=== PATIENT | female | born 1965 | race American Indian/Alaskan Native ===

== ENCOUNTER 2017-01-12 15:05 | Inpatient (IN) | payer MEDICAID, OTHER ==
[2017-01-12] MEDS ORDERED: Sodium Chloride 0.9% 10 ML Syringe FLUSH PRN ×2 (16:07→18:44)
--- NOTE | 2017-01-12 16:16 | EDM.PDOC ---
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 Sodium Chloride 0.9% [Saline Flush] 10 ml FLUSH ASDIRECTED PRN Peripheral IV Insertion Adult [OM.PC] Stat 01/12/17 16:08 Scapula Lt [CR] Stat Scapula Rt [CR] Stat 01/12/17 18:23 Chest 2V [CR] Stat 01/12/17 18:44 Sodium Chloride 0.9% [Saline Flush] 10 ml FLUSH ONETIME PRN 01/12/17 20:00 Magnesium Sulfate/Water [Magnesium Sulfate 2 GM in Water 50 ML] 2 gm Premix Bag 1 bag IV ONETIME 01/12/17 20:03 Admission Status [Patient Status] [ADT] Routine Cardiac Monitoring [RC] . DIRECTED 01/13/17 19:00 Remove Patch 1 ea TRDERM ONETIME 01/14/17 09:00 Remove Patch 1 ea TRDERM DAILY - Assessment/Plan Last 24 Hours: My Active Orders 01/12/17 16:07 Peripheral IV Care [RC] . DIRECTED Sodium Chloride 0.9% [Saline Flush] 10 ml FLUSH ASDIRECTED PRN Peripheral IV Insertion Adult [OM.PC] Stat 01/12/17 16:08 Scapula Lt [CR] Stat Scapula Rt [CR] Stat 01/12/17 18:23 Chest 2V [CR] Stat 01/12/17 18:44 Sodium Chloride 0.9% [Saline Flush] 10 ml FLUSH ONETIME PRN 01/12/17 20:00 Magnesium Sulfate/Water [Magnesium Sulfate 2 GM in Water 50 ML] 2 gm Premix Bag 1 bag IV ONETIME 01/12/17 20:03 Admission Status [Patient Status] [ADT] Routine Cardiac Monitoring [RC] . DIRECTED 01/13/17 19:00 Remove Patch 1 ea TRDERM ONETIME 01/14/17 09:00 Remove Patch 1 ea TRDERM DAILY
--- NOTE | 2017-01-12 17:03 | CT ---
Head CT Technique: Multiple axial sections through the brain were obtained. Intravenous contrast was not utilized. Comparison: No previous intracranial imaging. Findings: Ventricles along with basal cisterns and sulci over convexities are within normal limits for the patient's age. No abnormal parenchymal densities are seen. No evidence of intracranial hemorrhage. No midline shift or mass effect is seen. No discrete calvarial abnormality is seen. Visualized sinuses are clear. Impression: 1. No acute intracranial abnormality is identified on noncontrast head CT study. Diagnostic code #1
--- NOTE | 2017-01-12 17:07 | CT ---
CT cervical spine Technique: Multiple axial sections through the cervical spine were obtained from above C1 inferiorly to the bottom of T1. Reconstructed sagittal and coronal images were reviewed. Findings: Posterior skull base is intact. Vertebral body heights are maintained. Mild disc space narrowing noted at C5-6. Vertebral bodies and posterior arches are intact. No fracture is seen. Mild kyphosis is present on the reconstructed sagittal views. No abnormal subluxation is seen. No bony central or bony neural foraminal stenosis is seen. Impression: 1. Mild kyphosis either due to muscle spasm or is positional. 2. No acute fracture or abnormal subluxation is seen. Diagnostic code #2
[2017-01-12] MEDS ORDERED: Albuterol/Ipratropium 3.0-0.5 MG/3 ML Neb Soln NEB PRN (18:38)
[2017-01-12] MEDS ORDERED: Temazepam 15 MG Cap PO PRN (18:38)
[2017-01-12] MEDS ORDERED: HYDROmorphone 1 MG/ML Syringe IVPUSH PRN (18:38)
[2017-01-12] MEDS ORDERED: Bisacodyl 5 MG Tab PO PRN (18:38)
[2017-01-12] MEDS ORDERED: Promethazine 12.5 MG in Sodium Chloride 0.9% 50 ML IV PRN (18:38)
[2017-01-12] MEDS ORDERED: Polyethylene Glycol 3350 Powder 17 GM Packet PO PRN (18:38)
[2017-01-12] MEDS ORDERED: Ondansetron 4 MG/2 ML SDV IV PRN (18:38)
[2017-01-12] MEDS ORDERED: Potassium Chloride 20 MEQ Tab.ER PO ONE (18:42)
[2017-01-12] MEDS ORDERED: LORazepam 2 MG/ML MDV IVPUSH PRN ×2 (18:44→18:48)
[2017-01-12] MEDS ORDERED: hydrALAZINE 20 MG/ML SDV IVPUSH PRN (18:44)
[2017-01-12] MEDS ORDERED: Metoprolol Tartrate 5 MG/5 ML SDV IVPUSH PRN (18:44)
[2017-01-12] MEDS ORDERED: Iopamidol 612 MG/ML 150 ML Bottle IVPUSH ONE (18:44)
[2017-01-12] MEDS ORDERED: Folic Acid 50 MG/10 ML MDV SUBCUT ONE (18:45)
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
[2017-01-12] MEDS ORDERED: cloNIDine 0.3 MG/Day Transdermal Patch TRDERM ONE (19:00)
--- NOTE | 2017-01-12 19:27 | CT ---
CT abdomen and pelvis Technique: Multiple axial sections were obtained from above the dome of the diaphragm inferiorly through the pubic symphysis. Intravenous contrast was utilized. No oral contrast has been given. Delayed images were also obtained through the bladder. Findings: Visualized lung bases shows nothing acute. Mild fatty infiltration is seen within the liver. Surgical clips are seen from prior cholecystectomy. Spleen appears within normal limits. Slight splenic varicosities are noted. Right kidney is lobulated with irregular areas of parenchymal loss which appears to be chronic. Left kidney appears more normal in appearance. Both kidneys show symmetric contrast enhancement. Adrenal glands show no nodule. Pancreas is within normal limits. Aorta shows no aneurysmal dilatation. No retroperitoneal adenopathy or mesenteric abnormalities are seen. No pelvic mass or adenopathy is seen. No free fluid or inflammatory change is seen within the abdomen or pelvis. Slight increased stool noted within the colon. Delayed images shows slight contrast within the bladder and within the distal ureters. Bone window settings were reviewed which appear within normal limits for the patient's age. Impression: 1. Incidental findings as noted above. Nothing acute is appreciated on CT study of the abdomen and pelvis. Diagnostic code #2
--- NOTE | 2017-01-12 19:57 | PCM.SN ---
- Free Text/Narrative Note: Patient had 6 episode of mild seizures since she got to the unit. We have just started her on IV Keppra. If she continues, may switch her to dilantin or cerebyx. Her vitals remain are stable.
[2017-01-12] MEDS ORDERED: Magnesium Sulfate/Water 2 GM in Premix Bag 1 BAG IV ONE (20:00)
[2017-01-12] MEDS ORDERED: Folic Acid 1 MG Tab PO ONE (20:37)
[2017-01-12] MEDS: chlordiazePOXIDE 25 MG Cap PO SCH (20:45)
[2017-01-12] MEDS: QUEtiapine 25 MG Tab PO SCH (20:46)
[2017-01-12] MEDS: Pantoprazole 40 MG Vial IV SCH (20:46)
[2017-01-12] MEDS: Sodium Chloride 0.9% 1,000 ML IV SCH (20:49)
[2017-01-12] MEDS ORDERED: Multivitamins,Therapeutic Tab PO ONE (21:00)
[2017-01-12] MEDS: Acetaminophen/HYDROcodone 325-5 MG Tab PO PRN (21:07)
--- NOTE | 2017-01-13 00:37 | PCM.SN ---
- Free Text/Narrative Note: She has Thrombocytopenia likely 2/2 Chronic ETOHLism. Lovenox and Heparin would be contra-indicated due to increased bleed. SCDs for DVT prophylaxis.
[2017-01-13] MEDS: Sodium Chloride 0.9% 1,000 ML IV SCH (04:53)
--- NOTE | 2017-01-13 07:05 | CR ---
Chest: Two views of the chest were obtained. Comparison: No previous chest x-ray. Heart size and mediastinum are normal. Lungs are clear. Bony structures are within normal limits for the patient's age. Surgical clips are seen within the upper right abdomen. Impression: 1. Nothing acute is identified on two-view chest x-ray. Diagnostic code #2
--- NOTE | 2017-01-13 07:05 | CR ---
Left scapula: Two views of the left scapula were obtained. Comparison: No previous study. No fracture or other bony abnormality is seen. Impression: 1. No abnormality is identified on two-view left scapula study. Diagnostic code #1
--- NOTE | 2017-01-13 07:05 | CR ---
Right scapula: Two views of the right scapula were obtained. No fracture or other bony abnormality is seen. Impression: 1. No abnormality is identified on two-view right scapula study. Diagnostic code #1
[2017-01-13] MEDS: Pantoprazole 40 MG Vial IV SCH (08:06)
[2017-01-13] MEDS: Thiamine 100 MG Tab PO SCH (08:06)
[2017-01-13] MEDS: Folic Acid 1 MG Tab PO SCH (08:06)
[2017-01-13] MEDS: chlordiazePOXIDE 25 MG Cap PO SCH ×4 (08:06→21:06)
[2017-01-13] MEDS: QUEtiapine 25 MG Tab PO SCH ×2 (08:06→21:07)
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
[2017-01-13] MEDS ORDERED: Nicotine 21 MG/24 Hr Patch TRDERM SCH (09:00)
[2017-01-13] MEDS ORDERED: Enoxaparin 30 MG/0.3 ML Syringe SUBCUT SCH (09:00)
[2017-01-13] MEDS: Acetaminophen/HYDROcodone 325-5 MG Tab PO PRN (21:06)
[2017-01-13] MEDS: Famotidine 20 MG Tab PO SCH (21:06)
--- NOTE | 2017-01-13 21:59 | CONS ---
CONSULTING PHYSICIAN: Jh Huizar LAC DATE OF CONSULTATION: 01/13/2017 TIME: 09:07 p.m. BRANT Chaidez contacted me today, 01/13/2017, with a request for an alcohol and drug consultation. I attempted an alcohol and drug evaluation at approximately 04:30 p.m. on 01/13/2017. However, the patient was quite tired and could not remember events in her life. Her speech at times was barely audible and when asked to repeat herself, she became emily and irritated. The patient verbalized that she was tired and we decided to postpone the evaluation until 01/14/2017. I spoke with Dr. Mobley and BRANT Chaidez regarding the failed attempt at the alcohol and drug evaluation. The team was in agreement that I meet with the patient again on 01/14/2017, to continue with completing the alcohol and drug evaluation. ARASH /[id number]
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
[2017-01-14] MEDS: Potassium Chloride 20 MEQ Tab.ER PO SCH ×2 (09:03→12:15)
[2017-01-14] MEDS: Thiamine 100 MG Tab PO SCH (09:03)
[2017-01-14] MEDS: Famotidine 20 MG Tab PO SCH ×2 (09:03→21:33)
[2017-01-14] MEDS: QUEtiapine 25 MG Tab PO SCH ×2 (09:03→21:34)
[2017-01-14] MEDS: Folic Acid 1 MG Tab PO SCH (09:03)
[2017-01-14] MEDS: chlordiazePOXIDE 25 MG Cap PO SCH ×3 (09:03→17:33)
[2017-01-14] MEDS: Acetaminophen 325 MG Tab PO PRN (09:40)
[2017-01-14] MEDS: Acetaminophen/HYDROcodone 325-5 MG Tab PO PRN (14:41)
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
[2017-01-14] MEDS ORDERED: Loratadine 10 MG Tab PO PRN (19:49)
[2017-01-14] MEDS: diphenhydrAMINE 50 MG/ML SDV IVPUSH PRN (21:34)
[2017-01-15] MEDS: QUEtiapine 25 MG Tab PO SCH ×2 (08:58→21:08)
[2017-01-15] MEDS: Magnesium Oxide 400 MG Tab PO SCH (08:58)
[2017-01-15] MEDS: Potassium Chloride 20 MEQ Tab.ER PO SCH ×2 (08:58→11:39)
[2017-01-15] MEDS: Folic Acid 1 MG Tab PO SCH (08:58)
[2017-01-15] MEDS: Thiamine 100 MG Tab PO SCH (08:58)
[2017-01-15] MEDS: Famotidine 20 MG Tab PO SCH ×2 (08:59→21:08)
[2017-01-15] MEDS: Acetaminophen 325 MG Tab PO PRN (09:04)
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
[2017-01-15] MEDS ORDERED: Magnesium Sulfate/Water 2 GM in Premix Bag 1 BAG IV ONE (18:26)
[2017-01-15] MEDS ORDERED: Potassium Chloride 10% 20 MEQ/15 ML Soln 30 ML UD Cup PO SCH (21:00)
[2017-01-15] MEDS: diphenhydrAMINE 50 MG/ML SDV IVPUSH PRN ×2 (21:19→21:23)
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
[2017-01-16] MEDS: Famotidine 20 MG Tab PO SCH (08:18)
[2017-01-16] MEDS: Magnesium Oxide 400 MG Tab PO SCH (08:19)
[2017-01-16] MEDS: QUEtiapine 25 MG Tab PO SCH (08:19)
[2017-01-16] MEDS: Acetaminophen 325 MG Tab PO PRN (08:19)
[2017-01-16] MEDS: Thiamine 100 MG Tab PO SCH (08:19)
[2017-01-16 08:54] VITALS: BP 102/55
== END 2017-01-16 09:16 | DRG 896 ==
LOC: JD.ED 15:05 → JD.ICU 20:03 → UNDOADMIN 20:03 → JD.ICU 01-14 07:00 → JD.MS 01-14 15:39 → JD.ICU 01-14 15:45 → JD.MS 01-14 17:56 → JD.ICU 01-14 17:56
PROVIDERS: ADMIT Internal Medicine; ATTEND Internal Medicine
DX: F10.229 Alcohol dependence with intoxication, unspecified (principal); K85.20 Alcohol induced acute pancreatitis without necrosis or infection; F10.239 Alcohol dependence with withdrawal, unspecified; Y90.1 Blood alcohol level of 20-39 mg/100 ml; K70.30 Alcoholic cirrhosis of liver without ascites; F13.90 Sedative, hypnotic, or anxiolytic use, unspecified, uncomplicated; E87.6 Hypokalemia; R79.89 Other specified abnormal findings of blood chemistry; T14.8 Other injury of unspecified body region; Y04.0XXA Assault by unarmed brawl or fight, initial encounter; Z86.19 Personal history of other infectious and parasitic diseases; Z88.8 Allergy status to other drugs, medicaments and biological substances; F17.200 Nicotine dependence, unspecified, uncomplicated; D69.6 Thrombocytopenia, unspecified
CPT/HCPCS: 36415; 70450; 70450-26; 71020; 71020-26; 72125; 72125-26; 73010-26-LT; 73010-26-RT; 73010-LT; 73010-RT; 74177; 74177-26; 80048; 80053; 80306; 81001; 83690; 83735; 84443; 84703; 85025; 85610; 86140; 93005; 97110-GP; 97116-GP; 97162-GP; 97165-GO; 99285; 99285-25; A9270-GY; C9113; G0480; J1200; J2060; J3411; J3475; J7030; J7040; J7050; Q9967

== ENCOUNTER 2019-08-12 12:01 | Emergency (ER) | payer SELFPAY ==
[2019-08-12 12:17] VITALS: BP 113/51; PULSE 99
[2019-08-12] MEDS ORDERED: Sodium Chloride 0.9% 10 ML Syringe FLUSH PRN (12:17)
[2019-08-12] MEDS ORDERED: HYDROmorphone 1 MG/ML Syringe IVPUSH ONE ×2 (12:18→14:45)
--- NOTE | 2019-08-12 12:36 | EDM.PDOC ---
ED HPI GENERAL MEDICAL PROBLEM - General Chief Complaint: Respiratory Problem Stated Complaint: SOB Time Seen by Provider: 08/12/19 12:10 Source of Information: Reports: Patient, Family History Limitations: Reports: No Limitations - History of Present Illness INITIAL COMMENTS - FREE TEXT/NARRATIVE: The patient presents with her family for shortness of breath and left sided chest pain. She has end stage liver disease and is going into hospice soon. She fell earlier this month and broke 3 ribs on the left side and she was hospitalized in [place]. She was seen here about 1 week ago. She had a CT angio done and there was a possible pneumonia with effusion and the fractured ribs. She was put on an antibiotic. She now has more left rib pain and her family thinks her ascities is worse and she may need to be tapped. She has no fever but she does have chills. She has no nausea or vomiting. She has no diarrhea or dysuria. Onset: Gradual Duration: Day(s): Location: Reports: Chest, Abdomen Quality: Reports: Sharp Severity: Moderate Improves with: Reports: None Worsens with: Reports: None Associated Symptoms: Reports: Chest Pain, Fever/Chills, Shortness of Breath. Denies: Cough, Headaches, Nausea/Vomiting Left Abdomen Pain Score (Numeric/FACES): 10 - Related Data Allergies Allergy/AdvReac Type Severity Reaction Status Date / Time celecoxib [From Celebrex] Allergy Swelling Verified 08/12/19 12:19 codeine Allergy Swelling Verified 08/12/19 12:19 Home Meds: Home Meds Folic Acid 1 mg PO DAILY #30 tablet 01/16/17 [Rx] Thiamine [Vitamin B-1] 100 mg PO DAILY #30 tablet 01/16/17 [Rx] Albuterol [Ventolin HFA] 2 puff INH Q6HR PRN 07/28/19 [History] Cholecalciferol (Vitamin D3) [Vitamin D3] 1,000 unit PO DAILY 07/28/19 [History] Furosemide 20 mg PO DAILY 07/28/19 [History] Gabapentin [Neurontin] 300 mg PO BID 07/28/19 [History] Iron Ag,Ps/C/Fa6/B12/Zn/SA/Sto [Niferex Tablet] 1 each PO DAILY 07/28/19 [ History] Lactulose 45 ml PO QID 07/28/19 [History] Methocarbamol [Robaxin-750] 750 mg PO TID 07/28/19 [History] Midodrine 10 mg PO TID 07/28/19 [History] Mirtazapine 7.5 mg PO BEDTIME 07/28/19 [History] Morphine 7.5 mg PO Q6HR PRN 07/28/19 [History] Pantoprazole [ProTONIX] 40 mg PO DAILY 07/28/19 [History] Spironolactone [Aldactone] 25 mg PO DAILY 07/28/19 [History] Morphine 15 mg PO Q6H PRN #30 tab 08/12/19 [Rx] Past Medical History HEENT History: Reports: None Cardiovascular History: Reports: None Respiratory History: Reports: None Gastrointestinal History: Reports: Cirrhosis, Other (See Below) Other Gastrointestinal History: diverticulitis Genitourinary History: Reports: Chronic Renal Insuffiency 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: Musculoskeletal History: Reports: Fracture Neurological History: Reports: None Psychiatric History: Reports: None Endocrine/Metabolic History: Reports: None Hematologic History: Reports: None Immunologic History: Reports: None Oncologic (Cancer) History: Reports: None Dermatologic History: Reports: None - Infectious Disease History Infectious Disease History: Reports: None - Past Surgical History Musculoskeletal Surgical History: Reports: Other (See Below) Social & Family History - Family History Family Medical History: Noncontributory - Caffeine Use Caffeine Use: Reports: Coffee ED ROS GENERAL - Review of Systems Review Of Systems: See Below Constitutional: Reports: No Symptoms HEENT: Reports: No Symptoms Respiratory: Reports: Shortness of Breath. Denies: Cough Cardiovascular: Reports: Chest Pain Endocrine: Reports: No Symptoms GI/Abdominal: Reports: Abdominal Pain. Denies: Diarrhea, Nausea, Vomiting : Reports: No Symptoms ED EXAM, GENERAL - Physical Exam Exam: See Below Exam Limited By: No Limitations General Appearance: Alert, No Apparent Distress Ears: Normal External Exam Nose: Normal Inspection Head: Atraumatic, Normocephalic Neck: Normal Inspection Respiratory/Chest: No Respiratory Distress, Decreased Breath Sounds Cardiovascular: Regular Rate, Rhythm, No Edema, No Murmur, Other (Pain upon palpation to the left chest) GI/Abdominal: Soft, Non-Tender, No Organomegaly, No Mass. No: Distended Back Exam: Normal Inspection Extremities: Normal Inspection Neurological: Alert, Oriented, No Motor/Sensory Deficits EKG INTERPRETATION EKG Date: 08/12/19 Time: 12:22 Rhythm: NSR Rate (Beats/Min): 76 [place]: Normal P-Wave: Present QRS: Normal ST-T: Normal QT: Normal Course - Vital Signs Last Recorded V/S: Last Vital Signs Temp 97.3 F 08/12/19 12:10 Pulse 99 08/12/19 12:10 Resp 18 08/12/19 12:10 BP 113/51 L 08/12/19 12:10 Pulse Ox 99 08/12/19 12:10 - Orders/Labs/Meds Orders: Active Orders 24 hr Category Date Time Status Cardiac Monitoring [RC] . DIRECTED Care 08/12/19 12:17 Active EKG Documentation Completion [RC] STAT Care 08/12/19 12:18 Active Oxygen Therapy [RC] PRN Care 08/12/19 12:17 Active Peripheral IV Care [RC] . DIRECTED Care 08/12/19 12:18 Active Sodium Chloride 0.9% [Saline Flush] Med 08/12/19 12:17 Active 10 ml FLUSH ASDIRECTED PRN Peripheral IV Insertion Adult [OM.PC] Stat Oth 08/12/19 12:17 Ordered Medication Orders Sodium Chloride (Saline Flush) 10 ml FLUSH ASDIRECTED PRN PRN Reason: Keep Vein Open Last Admin: 08/12/19 12:40 Dose: 10 ml Labs: Laboratory Tests 08/12/19 08/12/19 08/12/19 Range/Units 12:32 12:32 12:32 WBC 5.02 (3.98-10.04) K/mm3 RBC 2.31 L (3.98-5.22) M/mm3 Hgb 8.1 L (11.2-15.7) gm/dl Hct 26.6 L (34.1-44.9) % MCV 115.2 H D (79.4-94.8) fl MCH 35.1 H (25.6-32.2) pg MCHC 30.5 L (32.2-35.5) g/dl RDW Std Deviation 96.9 H (36.4-46.3) fL Plt Count 81 L (182-369) K/mm3 MPV 10.6 (9.4-12.3) fl Neut % (Auto) 69.8 (34.0-71.1) % Lymph % (Auto) 12.0 L (19.3-51.7) % [place] % (Auto) 12.2 (4.7-12.5) % Eos % (Auto) 4.2 (0.7-5.8) Baso % (Auto) 0.6 (0.1-1.2) % Neut # (Auto) 3.51 (1.56-6.13) K/mm3 Lymph # (Auto) 0.60 L (1.18-3.74) K/mm3 [place] # (Auto) 0.61 H (0.24-0.36) K/mm3 Eos # (Auto) 0.21 (0.04-0.36) K/mm3 Baso # (Auto) 0.03 (0.01-0.08) K/mm3 Manual Slide Review Abnormal smear PT (9.7-12.0) SECONDS INR APTT (22-31) SECONDS Sodium 138 (136-145) mEq/L Potassium 4.4 (3.5-5.1) mEq/L Chloride 108 H (98-107) mEq/L Carbon Dioxide 18 L (21-32) mEq/L Anion Gap 16.4 H (5-15) BUN 15 (7-18) mg/dL Creatinine 1.3 H (0.55-1.02) mg/dL Est Cr Clr Drug Dosing 45.03 mL/min Estimated GFR (MDRD) 43 (>60) mL/min BUN/Creatinine Ratio 11.5 L (14-18) Glucose 106 (74-106) mg/dL Calcium 8.6 (8.5-10.1) mg/dL Magnesium 1.9 (1.8-2.4) mg/dl Total Bilirubin 12.4 H (0.2-1.0) mg/dL AST 48 H (15-37) U/L ALT 31 (14-59) U/L Alkaline Phosphatase 292 H (46-116) U/L Troponin I 0.026 (0.00-0.056) ng/mL NT-Pro-B Natriuret Pep 556 H (0-125) pg/mL Total Protein 6.1 L (6.4-8.2) g/dl Albumin 2.5 L (3.4-5.0) g/dl Globulin 3.6 gm/dL Albumin/Globulin Ratio 0.7 L (1-2) 08/12/19 Range/Units 12:32 WBC (3.98-10.04) K/mm3 RBC (3.98-5.22) M/mm3 Hgb (11.2-15.7) gm/dl Hct (34.1-44.9) % MCV (79.4-94.8) fl MCH (25.6-32.2) pg MCHC (32.2-35.5) g/dl RDW Std Deviation (36.4-46.3) fL Plt Count (182-369) K/mm3 MPV (9.4-12.3) fl Neut % (Auto) (34.0-71.1) % Lymph % (Auto) (19.3-51.7) % [place] % (Auto) (4.7-12.5) % Eos % (Auto) (0.7-5.8) Baso % (Auto) (0.1-1.2) % Neut # (Auto) (1.56-6.13) K/mm3 Lymph # (Auto) (1.18-3.74) K/mm3 [place] # (Auto) (0.24-0.36) K/mm3 Eos # (Auto) (0.04-0.36) K/mm3 Baso # (Auto) (0.01-0.08) K/mm3 Manual Slide Review PT 19.5 H (9.7-12.0) SECONDS INR 1.85 APTT 41 H (22-31) SECONDS Sodium (136-145) mEq/L Potassium (3.5-5.1) mEq/L Chloride (98-107) mEq/L Carbon Dioxide (21-32) mEq/L Anion Gap (5-15) BUN (7-18) mg/dL Creatinine (0.55-1.02) mg/dL Est Cr Clr Drug Dosing mL/min Estimated GFR (MDRD) (>60) mL/min BUN/Creatinine Ratio (14-18) Glucose (74-106) mg/dL Calcium (8.5-10.1) mg/dL Magnesium (1.8-2.4) mg/dl Total Bilirubin (0.2-1.0) mg/dL AST (15-37) U/L ALT (14-59) U/L Alkaline Phosphatase (46-116) U/L Troponin I (0.00-0.056) ng/mL NT-Pro-B Natriuret Pep (0-125) pg/mL Total Protein (6.4-8.2) g/dl Albumin (3.4-5.0) g/dl Globulin gm/dL Albumin/Globulin Ratio (1-2) Meds: Medications Generic Name Dose Route Start Last Admin Trade Name Freq PRN Reason Stop Dose Admin Sodium Chloride 10 ml 08/12/19 12:17 08/12/19 12:40 Saline Flush FLUSH 10 ml ASDIRECTED PRN Administration Keep Vein Open Discontinued Medications Generic Name Dose Route Start Last Admin Trade Name Freq PRN Reason Stop Dose Admin Hydromorphone HCl 1 mg 08/12/19 12:18 08/12/19 12:39 Dilaudid IVPUSH 08/12/19 12:19 1 mg ONETIME ONE Administration - Re-Assessments/Exams Free Text/Narrative Re-Assessment/Exam: 08/12/19 12:39 I ordered an IV saline lock, oxygen PRN, labs, EKG, CXR and dilaudid 1mg IV. 08/12/19 14:24 Her CXR shows no acute changes. Her EKG shows a NSR with no acute changes. Her Hgb is low at 8.1. Her platelets are low 81. Her INR is normal at 1.85. Her anion gap is elevated at 16.4. Her creatinine is elevated at 1.3. Her alk phos is elevated at 292. Her troponin is negative. Her BNP is elevated at 556. I will up her morphine to 15 and have her take lasix 40mg for 5 days. Departure - Departure Time of Disposition: 14:30 Disposition: Home, Self-Care 01 Condition: Good Clinical Impression: Chest wall pain Liver failure Qualifiers: Liver failure chronicity: chronic Hepatic coma status: without hepatic coma Qualified Code(s): K72.10 - Chronic hepatic failure without coma Ascitic fluid Qualifiers: Ascites type: other type Qualified Code(s): R18.8 - Other ascites - Discharge Information *PRESCRIPTION DRUG MONITORING PROGRAM REVIEWED*: No *COPY OF PRESCRIPTION DRUG MONITORING REPORT IN PATIENT JANKI: No Prescriptions: Morphine 15 mg PO Q6H PRN #30 tab PRN Reason: Pain Forms: ED Department Discharge Additional Instructions: Take lasix 40mg or 2 pills daily for 5 days. Take morphine 15mg every 6 hours as needed for pain. Follow up with your doctor within a week. Please return if you are worse. - My Orders Last 24 Hours: My Active Orders 08/12/19 12:17 Cardiac Monitoring [RC] . DIRECTED Oxygen Therapy [RC] PRN Sodium Chloride 0.9% [Saline Flush] 10 ml FLUSH ASDIRECTED PRN Peripheral IV Insertion Adult [OM.PC] Stat 08/12/19 12:18 EKG Documentation Completion [RC] STAT Peripheral IV Care [RC] . DIRECTED - Assessment/Plan Last 24 Hours: My Active Orders 08/12/19 12:17 Cardiac Monitoring [RC] . DIRECTED Oxygen Therapy [RC] PRN Sodium Chloride 0.9% [Saline Flush] 10 ml FLUSH ASDIRECTED PRN Peripheral IV Insertion Adult [OM.PC] Stat 08/12/19 12:18 EKG Documentation Completion [RC] STAT Peripheral IV Care [RC] . DIRECTED
--- NOTE | 2019-08-12 14:02 | CR ---
Chest: Portable view of the chest is obtained. Comparison: Prior chest x-ray of 07/28/19. Heart size is normal. Mild tortuosity of the thoracic aorta is seen. Lungs are clear with no acute parenchymal change. Fractures are noted within the left ribs. Intramedullary prince seen within the left proximal humerus. Surgical clips are seen from prior cholecystectomy. Impression: 1. Nothing acute is appreciated. 2. Stable rib fractures. Diagnostic code #2 This report was dictated in [place] Standard Time
== END 2019-08-12 14:48 | disposition home or self-care (01) ==
LOC: JD.ED 12:01
DX: R07.89 Other chest pain (principal); K72.10 Chronic hepatic failure without coma; R18.8 Other ascites; N18.9 Chronic kidney disease, unspecified; Z88.6 Allergy status to analgesic agent; Z88.5 Allergy status to narcotic agent
CPT/HCPCS: 36415; 71045; 80053; 83735; 83880; 84484; 85025; 85610; 85730; 93005; 96374; 96376; 99285; J1170; 93010; 99284

== ENCOUNTER 2019-08-16 16:14 | Emergency (ER) | payer SELFPAY ==
[2019-08-16] MEDS ORDERED: Sodium Chloride 0.9% 10 ML Syringe FLUSH PRN (16:48)
--- NOTE | 2019-08-16 17:50 | EDM.PDOC ---
ED HPI GENERAL MEDICAL PROBLEM - General Chief Complaint: Abdominal Pain Stated Complaint: [facility] Time Seen by Provider: 08/16/19 16:46 Source of Information: Reports: Patient, EMS, RN Notes Reviewed - History of Present Illness INITIAL COMMENTS - FREE TEXT/NARRATIVE: 53 year old female comes in with rectal bleeding, generalized weakness and dizziness. Her hx is very vague, no family members present. She does have hx of cirrhosis, liver failur, ascites secondary to alcohol abuse. She was recently hospitalized at [facility] several weeks ago after a fall and for broken ribs, released home to family here in [place] about 1 week ago. She states she has been having on and off dark stools for about the past week. Over the last 3 days they have been more consistently dark. Yesterday there was some bright red blood per rectum and now has had about 4 episodes of bright red blood per rectum today. She continue to feel short of breath with movement. She has mild generalized abd pain, occasional nausea, no vomiting. 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: Other Medication(s) Right Upper Abdomen Pain Score (Numeric/FACES): 10 - Related Data Allergies Allergy/AdvReac Type Severity Reaction Status Date / Time celecoxib [From Celebrex] Allergy Swelling Verified 08/16/19 16:20 codeine Allergy Swelling Verified 08/16/19 16:20 Home Meds: Home Meds Folic Acid 1 mg PO DAILY #30 tablet 01/16/17 [Rx] Thiamine [Vitamin B-1] 100 mg PO DAILY #30 tablet 01/16/17 [Rx] Albuterol [Ventolin HFA] 2 puff INH Q6HR PRN 07/28/19 [History] Cholecalciferol (Vitamin D3) [Vitamin D3] 1,000 unit PO DAILY 07/28/19 [History] Furosemide 20 mg PO DAILY 07/28/19 [History] Gabapentin [Neurontin] 300 mg PO BID 07/28/19 [History] Iron Ag,Ps/C/Fa6/B12/Zn/SA/Sto [Niferex Tablet] 1 each PO DAILY 07/28/19 [ History] Lactulose 45 ml PO QID 07/28/19 [History] Methocarbamol [Robaxin-750] 750 mg PO TID 07/28/19 [History] Midodrine 10 mg PO TID 07/28/19 [History] Mirtazapine 7.5 mg PO BEDTIME 07/28/19 [History] Morphine 7.5 mg PO Q6HR PRN 07/28/19 [History] Pantoprazole [ProTONIX] 40 mg PO DAILY 07/28/19 [History] Spironolactone [Aldactone] 25 mg PO DAILY 07/28/19 [History] Morphine 15 mg PO Q6H PRN #30 tab 08/12/19 [Rx] Morphine 15 mg PO Q6H PRN #30 tab 08/12/19 [Rx] Past Medical History HEENT History: Reports: None Cardiovascular History: Reports: None Respiratory History: Reports: None Other Respiratory History: due to ascites of the abdomen Gastrointestinal History: Reports: Cirrhosis, Other (See Below) Other Gastrointestinal History: diverticulitis Genitourinary History: Reports: Chronic Renal Insuffiency 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: Musculoskeletal History: Reports: Fracture Other Musculoskeletal History: Left rib fractures from a fall Neurological History: Reports: None Psychiatric History: Reports: None Endocrine/Metabolic History: Reports: None Hematologic History: Reports: None Immunologic History: Reports: None Oncologic (Cancer) History: Reports: None Dermatologic History: Reports: None - Infectious Disease History Infectious Disease History: Reports: None - Past Surgical History Musculoskeletal Surgical History: Reports: Other (See Below) Social & Family History - Family History Family Medical History: Noncontributory - Tobacco Use Smoking Status *Q: Never Smoker - Caffeine Use Caffeine Use: Reports: Coffee ED ROS GENERAL - Review of Systems Review Of Systems: See Below Constitutional: Denies: Fever, Chills, Diaphoresis HEENT: Denies: Throat Pain Respiratory: Reports: Shortness of Breath Cardiovascular: Denies: Chest Pain Endocrine: Reports: Fatigue GI/Abdominal: Reports: Abdominal Pain, Diarrhea, Hematochezia, Melena, Nausea. Denies: Hematemesis, Vomiting Musculoskeletal: Reports: No Symptoms Skin: Reports: Bruising. Denies: Rash Neurological: Reports: Dizziness, Difficulty Walking, Weakness (generalized) ED EXAM, GI/ABD - Physical Exam Exam: See Below Exam Limited By: No Limitations General Appearance: Alert, Mild Distress Eyes: Bilateral: Normal Appearance Nose: Normal Inspection Throat/Mouth: Other (oral mucosa dry) Head: Atraumatic Neck: Supple, Non-Tender Respiratory/Chest: No Respiratory Distress, Lungs Clear, Normal Breath Sounds Cardiovascular: Regular Rate, Rhythm GI/Abdominal Exam: Soft, Tender (mil tendreness mid and R abdomen) Extremities: Normal Inspection, Normal Range of Motion Neurological: Alert, No Motor/Sensory Deficits Skin Exam: Warm, Dry, Normal Color EKG INTERPRETATION EKG Date: 08/16/19 Rhythm: NSR [place]: Normal P-Wave: Present QRS: Normal ST-T: Normal Course - Vital Signs Last Recorded V/S: Last Vital Signs Temp 97.9 F 08/16/19 19:55 Pulse 92 08/16/19 19:55 Resp 16 08/16/19 19:55 BP 117/65 08/16/19 19:55 Pulse Ox 97 08/16/19 19:41 Orthostatic Blood Pressure [ 117/51 Standing] Orthostatic Blood Pressure [ 107/56 Supine] - Orders/Labs/Meds Orders: Active Orders 24 hr Category Date Time Status EKG 12 Lead [EKG Documentation Completion] [RC] STAT Care 08/16/19 16:49 Active Orthostatic Vital Signs [RC] ASDIRECTED Care 08/16/19 17:49 Active Peripheral IV Care [RC] . DIRECTED Care 08/16/19 16:49 Active PACKED CELLS [RED BLOOD CELLS LP] [BBK] Stat Lab 08/16/19 17:20 Results TYPE AND SCREEN [BBK] Stat Lab 08/16/19 17:20 Results Sodium Chloride 0.9% [Saline Flush] Med 08/16/19 16:48 Active 10 ml FLUSH ASDIRECTED PRN Peripheral IV Insertion Adult [OM.PC] Stat Oth 08/16/19 16:49 Ordered Medication Orders Sodium Chloride (Saline Flush) 10 ml FLUSH ASDIRECTED PRN PRN Reason: Keep Vein Open Last Admin: 08/16/19 17:42 Dose: 10 ml Labs: Laboratory Tests 08/16/19 08/16/19 08/16/19 Range/Units 17:20 17:20 17:20 WBC 6.56 (3.98-10.04) K/mm3 RBC 2.10 L (3.98-5.22) M/mm3 Hgb 7.4 L (11.2-15.7) gm/dl Hct 24.2 L (34.1-44.9) % MCV 115.2 H (79.4-94.8) fl MCH 35.2 H (25.6-32.2) pg MCHC 30.6 L (32.2-35.5) g/dl RDW Std Deviation 82.9 H (36.4-46.3) fL Plt Count 90 L (182-369) K/mm3 MPV 9.9 (9.4-12.3) fl Neut % (Auto) 74.5 H (34.0-71.1) % Lymph % (Auto) 9.0 L (19.3-51.7) % [place] % (Auto) 12.8 H (4.7-12.5) % Eos % (Auto) 1.7 (0.7-5.8) Baso % (Auto) 0.9 (0.1-1.2) % Neut # (Auto) 4.89 (1.56-6.13) K/mm3 Lymph # (Auto) 0.59 L (1.18-3.74) K/mm3 [place] # (Auto) 0.84 H (0.24-0.36) K/mm3 Eos # (Auto) 0.11 (0.04-0.36) K/mm3 Baso # (Auto) 0.06 (0.01-0.08) K/mm3 Manual Slide Review Abnormal smear PT 19.6 H (9.7-12.0) SECONDS INR 1.86 APTT 45 H D (22-31) SECONDS Sodium (136-145) mEq/L Potassium (3.5-5.1) mEq/L Chloride (98-107) mEq/L Carbon Dioxide (21-32) mEq/L Anion Gap (5-15) BUN (7-18) mg/dL Creatinine (0.55-1.02) mg/dL Est Cr Clr Drug Dosing mL/min Estimated GFR (MDRD) (>60) mL/min BUN/Creatinine Ratio (14-18) Glucose (74-106) mg/dL Calcium (8.5-10.1) mg/dL Total Bilirubin (0.2-1.0) mg/dL AST (15-37) U/L ALT (14-59) U/L Alkaline Phosphatase (46-116) U/L Total Protein (6.4-8.2) g/dl Albumin (3.4-5.0) g/dl Globulin gm/dL Albumin/Globulin Ratio (1-2) Blood Type A POSITIVE Gel Antibody Screen Negative Crossmatch See Detail 08/16/19 Range/Units 17:25 WBC (3.98-10.04) K/mm3 RBC (3.98-5.22) M/mm3 Hgb (11.2-15.7) gm/dl Hct (34.1-44.9) % MCV (79.4-94.8) fl MCH (25.6-32.2) pg MCHC (32.2-35.5) g/dl RDW Std Deviation (36.4-46.3) fL Plt Count (182-369) K/mm3 MPV (9.4-12.3) fl Neut % (Auto) (34.0-71.1) % Lymph % (Auto) (19.3-51.7) % [place] % (Auto) (4.7-12.5) % Eos % (Auto) (0.7-5.8) Baso % (Auto) (0.1-1.2) % Neut # (Auto) (1.56-6.13) K/mm3 Lymph # (Auto) (1.18-3.74) K/mm3 [place] # (Auto) (0.24-0.36) K/mm3 Eos # (Auto) (0.04-0.36) K/mm3 Baso # (Auto) (0.01-0.08) K/mm3 Manual Slide Review PT (9.7-12.0) SECONDS INR APTT (22-31) SECONDS Sodium 138 (136-145) mEq/L Potassium 3.8 (3.5-5.1) mEq/L Chloride 108 H (98-107) mEq/L Carbon Dioxide 19 L (21-32) mEq/L Anion Gap 14.8 (5-15) BUN 15 (7-18) mg/dL Creatinine 1.5 H (0.55-1.02) mg/dL Est Cr Clr Drug Dosing 39.03 mL/min Estimated GFR (MDRD) 36 (>60) mL/min BUN/Creatinine Ratio 10.0 L (14-18) Glucose 125 H (74-106) mg/dL Calcium 8.3 L (8.5-10.1) mg/dL Total Bilirubin 12.7 H (0.2-1.0) mg/dL AST 47 H (15-37) U/L ALT 28 (14-59) U/L Alkaline Phosphatase 242 H (46-116) U/L Total Protein 5.9 L (6.4-8.2) g/dl Albumin 2.4 L (3.4-5.0) g/dl Globulin 3.5 gm/dL Albumin/Globulin Ratio 0.7 L (1-2) Blood Type Gel Antibody Screen Crossmatch Meds: Medications Generic Name Dose Route Start Last Admin Trade Name Freq PRN Reason Stop Dose Admin Sodium Chloride 10 ml 08/16/19 16:48 08/16/19 17:42 Saline Flush FLUSH 10 ml ASDIRECTED PRN Administration Keep Vein Open Discontinued Medications Generic Name Dose Route Start Last Admin Trade Name Freq PRN Reason Stop Dose Admin Pantoprazole Sodium 80 mg 08/16/19 17:59 08/16/19 18:23 Protonix Iv IVPUSH 08/16/19 18:00 80 mg ONETIME ONE Administration - Re-Assessments/Exams Free Text/Narrative Re-Assessment/Exam: 08/16/19 20:29. Hgb came back at 7.4. Did have lab type and cross 2 units PRBC 's. She had a BM shortly after arrival to ED that put a lot of blood along with dark stool in the toilet. Therefore rectal exam was not done. 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 INR has been in the 1.9 range, platelets are low at 90,000. She is at high risk for further bleeding with low hemodynamic reserve. We have no GI specialists here to provide the proper eval and treament she needs. Arrangements were made to transfer her to [facility] where she was previously admitted just 2 or 3 wks ago. She was sent by ground ambulance. Dr Agrawal, Hospitalist accepting Phys. for direct admit. Departure - Departure Time of Disposition: 18:18 Disposition: Home, Self-Care 01 Condition: Serious Clinical Impression: Rectal bleeding, Elevated INR, Thrombocytopenia Cirrhosis of liver Qualifiers: Hepatic cirrhosis type: alcoholic cirrhosis Ascites presence: without ascites Qualified Code(s): K70.30 - Alcoholic cirrhosis of liver without ascites - Discharge Information Referrals: PCP,None [Primary Care Provider] - Forms: ED Department Discharge - My Orders Last 24 Hours: My Active Orders 08/16/19 16:48 Sodium Chloride 0.9% [Saline Flush] 10 ml FLUSH ASDIRECTED PRN 08/16/19 16:49 EKG 12 Lead [EKG Documentation Completion] [RC] STAT Peripheral IV Care [RC] . DIRECTED Peripheral IV Insertion Adult [OM.PC] Stat 08/16/19 17:20 PACKED CELLS [RED BLOOD CELLS LP] [BBK] Stat TYPE AND SCREEN [BBK] Stat 08/16/19 17:49 Orthostatic Vital Signs [RC] ASDIRECTED - Assessment/Plan Last 24 Hours: My Active Orders 08/16/19 16:48 Sodium Chloride 0.9% [Saline Flush] 10 ml FLUSH ASDIRECTED PRN 08/16/19 16:49 EKG 12 Lead [EKG Documentation Completion] [RC] STAT Peripheral IV Care [RC] . DIRECTED Peripheral IV Insertion Adult [OM.PC] Stat 08/16/19 17:20 PACKED CELLS [RED BLOOD CELLS LP] [BBK] Stat TYPE AND SCREEN [BBK] Stat 08/16/19 17:49 Orthostatic Vital Signs [RC] ASDIRECTED
[2019-08-16] MEDS ORDERED: Pantoprazole 40 MG Vial IVPUSH ONE (17:59)
[2019-08-16 19:59] VITALS: BP 117/65; PULSE 92
== END 2019-08-16 20:21 | disposition home or self-care (01) ==
LOC: JD.ED 16:14
DX: K62.5 Hemorrhage of anus and rectum (principal); D69.6 Thrombocytopenia, unspecified; R79.1 Abnormal coagulation profile; K70.30 Alcoholic cirrhosis of liver without ascites; N18.9 Chronic kidney disease, unspecified; Z88.5 Allergy status to narcotic agent; Z88.8 Allergy status to other drugs, medicaments and biological substances; Z79.899 Other long term (current) drug therapy
CPT/HCPCS: 36415; 80053; 85025; 85610; 85730; 86850; 86900; 86901; 86922; 93005; 96374; 99285; C9113; P9016; 93010; 99284